=== PATIENT | male | born 1965 | race Caucasian/White ===

== ENCOUNTER 2022-03-08 09:20 | Inpatient (IN) | payer MEDICAID ==
[~2022-03-08] VITALS: Ht 162.6 cm; Wt 67.3 kg
[2022-03-08] MEDS ORDERED: FUROSEMIDE 40MG TABLET PO ONE (13:00)
[2022-03-08 13:26] LABS: HEMATOCRIT. 44.8 % (42.0-52.0); HEMOGLOBIN. 13.8 g/dL (14.0-18.0); MEAN CORPUSCULAR HEMOGLOBIN 24.4 pg (28.0-32.0); MEAN CORPUSCULAR VOLUME 79.1 fL (80.0-94.0); MEAN PLATELET VOLUME 9.1 fl (7.4-10.4); PLATELET 280 x1000/uL (130-400); RED BLOOD CELL COUNT 5.66 mill/uL (4.7-6.1); RED CELL DISTRIBUTION WIDTH 17.3 % (11.6-14.6)
[2022-03-08 13:35] LABS: CHLORIDE 104 mEq/L (98-107)
[2022-03-08 13:51] LABS: PLATELET ESTIMATE NORMAL
[2022-03-08] MEDS ORDERED: CEFTRIAXONE 1 G PREMIX 50 ML IV NR (14:15)
[2022-03-08] MEDS ORDERED: AZITHROMYCIN 500MG/250ML 250 ML IV NR (14:15)
[2022-03-08 19:13] VITALS: BP 121/68
[2022-03-08 20:00] VITALS: BP 118/75
[2022-03-08] MEDS: IPRATROPIUM/ALBUTEROL 0.5-3(2.5)MG/3ML NEB HHN SCH (21:43)
[2022-03-08 22:44] VITALS: BP 118/75
[2022-03-09 00:14] VITALS: BP 122/76
[2022-03-09] MEDS: IPRATROPIUM/ALBUTEROL 0.5-3(2.5)MG/3ML NEB HHN SCH ×4 (02:35→21:04)
[2022-03-09 04:00] VITALS: BP 102/60
[2022-03-09 06:27] LABS: HEMATOCRIT. 39.6 % (42.0-52.0); HEMOGLOBIN. 12.3 g/dL (14.0-18.0); MEAN CORPUSCULAR HEMOGLOBIN 24.3 pg (28.0-32.0); MEAN CORPUSCULAR VOLUME 78.2 fL (80.0-94.0); MEAN PLATELET VOLUME 9.9 fl (7.4-10.4); PLATELET 203 x1000/uL (130-400); RED BLOOD CELL COUNT 5.06 mill/uL (4.7-6.1); RED CELL DISTRIBUTION WIDTH 17.4 % (11.6-14.6)
[2022-03-09 08:00] VITALS: BP 114/65
[2022-03-09] MEDS: AZITHROMYCIN 500 MG TABLET PO SCH (08:29)
[2022-03-09] MEDS ORDERED: FUROSEMIDE 40MG/4ML VIAL IVP SCH (09:00)
[2022-03-09] MEDS ORDERED: GUAIFENESIN-DM 200MG-20MG/10ML UDC PO PRN (10:15)
[2022-03-09] MEDS ORDERED: DOCUSATE SODIUM 250MG CAPSULE PO PRN (10:15)
[2022-03-09] MEDS ORDERED: PNEUMOCOCCAL 23-VAL P-SAC VAC 0.5 ML IM ONE (11:00)
[2022-03-09] MEDS ORDERED: INFLUENZA VACCINE 05/PF 0.5 ML SYRINGE IM ONE (11:00)
[2022-03-09] MEDS ORDERED: IPRATROPIUM/ALBUTEROL 0.5-3(2.5)MG/3ML NEB HHN PRN (11:45)
[2022-03-09 12:00] VITALS: BP 115/70
[2022-03-09] MEDS ORDERED: VANCOMYCIN 1500MG in DEXTROSE 5% WATER 250ML IV NR (12:00)
[2022-03-09] MEDS: CEFTRIAXONE 1,000 MG in DEXTROSE 5% WATER 50 ML IV SCH (14:11)
[2022-03-09 16:00] VITALS: BP 115/68
[2022-03-09] MEDS: ONDANSETRON HCL 4MG/2ML INJ IV PRN (17:07)
[2022-03-09 18:33] LABS: PLATELET ESTIMATE NORMAL
[2022-03-09 20:00] VITALS: BP 121/66
[2022-03-09 23:15] LABS: CLARITY URINE CLEAR (CLEAR); COLOR URINE YELLOW (YELLOW); KETONES URINE NEGATIVE (NEGATIVE); LEUKOCYTE ESTERASE URINE NEGATIVE (NEGATIVE); NITRITE URINE NEGATIVE (NEGATIVE); OCCULT BLOOD URINE NEGATIVE (NEGATIVE); PROTEIN URINE TRACE (NEGATIVE); SPECIFIC GRAVITY URINE 1.013 (1.005-1.030)
[2022-03-09 23:28] LABS: *AMPHETAMINES SCREEN URINE NEGATIVE (NEGATIVE); *BARBITURATES SCREEN URINE NEGATIVE (NEGATIVE); *BENZODIAZEPINES SCREEN URINE NEGATIVE (NEGATIVE); *COCAINE SCREEN URINE PRESUMTIVE POSITIVE (NEGATIVE); CANNABINOID URINE SCREEN NEGATIVE (NEGATIVE); METHADONE URINE SCREEN NEGATIVE (NEGATIVE); OPIATES URINE SCREEN NEGATIVE (NEGATIVE); PHENCYCLIDINE URINE SCREEN NEGATIVE (NEGATIVE)
[2022-03-10] VITALS: BP 115/65
[2022-03-10] MEDS: IPRATROPIUM/ALBUTEROL 0.5-3(2.5)MG/3ML NEB HHN SCH ×4 (01:13→21:28)
[2022-03-10 04:00] VITALS: BP 122/68
[2022-03-10 08:00] VITALS: BP 115/78
[2022-03-10] MEDS: AZITHROMYCIN 500 MG TABLET PO SCH (08:49)
[2022-03-10 12:00] VITALS: BP 125/77
[2022-03-10] MEDS ORDERED: VANCOMYCIN 750MG PREMIX 150 ML IV SCH (12:00)
[2022-03-10] MEDS: CEFTRIAXONE 1,000 MG in DEXTROSE 5% WATER 50 ML IV SCH (14:41)
[2022-03-10 16:00] VITALS: BP 125/80
[2022-03-10 16:55] LABS: HEMATOCRIT. 35.5 % (42.0-52.0); MEAN CORPUSCULAR HEMOGLOBIN 24.1 pg (28.0-32.0); PLATELET 97 x1000/uL (130-400); RED BLOOD CELL COUNT 4.55 mill/uL (4.7-6.1)
[2022-03-10 19:51] LABS: PLATELET ESTIMATE DECREASED
[2022-03-10 20:00] VITALS: BP 117/77
[2022-03-10] MEDS: HYDROCODONE/ACETAMINOPHEN 10/325MG TABLET PO PRN (21:53)
[2022-03-10] MEDS: ONDANSETRON HCL 4MG/2ML INJ IV PRN (21:53)
[2022-03-11] VITALS: BP 145/95
[2022-03-11] MEDS: IPRATROPIUM/ALBUTEROL 0.5-3(2.5)MG/3ML NEB HHN SCH ×4 (01:13→19:43)
[2022-03-11] MEDS: HYDROCODONE/ACETAMINOPHEN 10/325MG TABLET PO PRN (03:24)
[2022-03-11 04:00] VITALS: BP 135/83
[2022-03-11 06:25] LABS: HEMATOCRIT. 36.7 % (42.0-52.0); HEMOGLOBIN. 11.3 g/dL (14.0-18.0); MEAN CORPUSCULAR VOLUME 77.6 fL (80.0-94.0); MEAN PLATELET VOLUME 11.2 fl (7.4-10.4); PLATELET 94 x1000/uL (130-400); RED BLOOD CELL COUNT 4.73 mill/uL (4.7-6.1)
[2022-03-11] MEDS: ONDANSETRON HCL 4MG/2ML INJ IV PRN (06:56)
[2022-03-11 08:00] VITALS: BP 144/85
[2022-03-11 08:33] LABS: PLATELET ESTIMATE DECREASED
[2022-03-11] MEDS: AZITHROMYCIN 500 MG TABLET PO SCH (10:14)
[2022-03-11] MEDS ORDERED: MORPHINE SULFATE 2 MG/ML CPJ (NOT FOR IM USE) IV NR (11:00)
[2022-03-11] MEDS ORDERED: NALOXONE HCL 0.4MG/ML VIAL IV PRN (11:00)
[2022-03-11 12:00] VITALS: BP 116/63
[2022-03-11] MEDS: DEXT 5%/0.45% NACL 500ML 500 ML IV SCH ×2 (12:38→21:44)
[2022-03-11 16:00] VITALS: BP 102/53
[2022-03-11] MEDS: PANTOPRAZOLE SODIUM 40 MG/VIAL IV SCH ×2 (16:20→21:41)
[2022-03-11] MEDS: CEFTRIAXONE 1,000 MG in DEXTROSE 5% WATER 50 ML IV SCH (16:20)
[2022-03-11 19:45] LABS: HEMATOCRIT 36.5 % (42.0-52.0); HEMOGLOBIN 11.1 g/dL (14.0-18.0)
[2022-03-11 20:00] VITALS: BP 108/62
[2022-03-11 20:07] LABS: TOTAL IRON BINDING CAPACITY 350 ug/dL (250-450)
[2022-03-11 20:25] LABS: FOLIC ACID (FOLATE) SERUM 6.8 ng/mL (>5.38)
[2022-03-12] VITALS: BP 148/88
[2022-03-12 01:05] LABS: HEMATOCRIT 34.1 % (42.0-52.0); HEMOGLOBIN 10.2 g/dL (14.0-18.0)
[2022-03-12] MEDS: IPRATROPIUM/ALBUTEROL 0.5-3(2.5)MG/3ML NEB HHN SCH ×4 (02:00→20:30)
[2022-03-12 03:37] VITALS: BP 96/50
[2022-03-12 05:29] LABS: BG CARBOXYHEMOGLOBIN 1.3 % (0.5-1.5); BG DEOXYHEMOGLOBIN 15.7 % (0.0-5.0); BG FRACTION INSPIRED OXYGEN 48; BG HCO3 ACT 22.3 mmol/L (22.0-26.0); BG METHEMOGLOBIN 0.3 % (0.0-1.5); BG OXYHEMOGLOBIN 82.7 % (94.0-97.0); BG PCO2 40.7 mmHg (35.0-45.0); BG PH 7.356 (7.350-7.450); BG PO2 51.9 mmHg (75.0-100.0); BG SAMPLE SITE RIGHT RADIAL; BG TOTAL HEMOGLOBIN 10.4 g/dL (12.0-18.0); BG VENT MODE NASAL CANNULA
[2022-03-12 06:18] LABS: HEMOGLOBIN. 10.1 g/dL (14.0-18.0); MEAN CORPUSCULAR HEMOGLOBIN 24.1 pg (28.0-32.0); MEAN CORPUSCULAR VOLUME 78.6 fL (80.0-94.0); MEAN PLATELET VOLUME 10.8 fl (7.4-10.4); PLATELET 53 x1000/uL (130-400); RED CELL DISTRIBUTION WIDTH 17.2 % (11.6-14.6)
[2022-03-12 06:38] LABS: INR 1.1; PROTHROMBIN TIME 11.9 sec (9.6-11.0)
[2022-03-12] MEDS ORDERED: FUROSEMIDE 40MG/4ML VIAL IVP SCH (07:15)
[2022-03-12 08:00] VITALS: BP 117/72
[2022-03-12] MEDS: DEXT 5%/0.45% NACL 500ML 500 ML IV SCH ×2 (08:30→18:19)
[2022-03-12] MEDS: AZITHROMYCIN 500 MG TABLET PO SCH (09:50)
[2022-03-12] MEDS: PANTOPRAZOLE SODIUM 40 MG/VIAL IV SCH ×2 (09:50→21:32)
[2022-03-12 11:54] LABS: PLATELET ESTIMATE MARKEDLY DECREASED
[2022-03-12 12:00] VITALS: BP 99/53
[2022-03-12 12:36] LABS: HEMATOCRIT 32.7 % (42.0-52.0); HEMOGLOBIN 9.7 g/dL (14.0-18.0)
[2022-03-12 14:20] LABS: BG BASE EXCESS -3.6 mmol/L (-2.0-2.0); BG CARBOXYHEMOGLOBIN 0.9 % (0.5-1.5); BG FRACTION INSPIRED OXYGEN 100; BG HCO3 ACT 22.2 mmol/L (22.0-26.0); BG METHEMOGLOBIN 0.3 % (0.0-1.5); BG OXYHEMOGLOBIN 97.8 % (94.0-97.0); BG PCO2 43.2 mmHg (35.0-45.0); BG PH 7.329 (7.350-7.450); BG PO2 183.9 mmHg (75.0-100.0); BG SAMPLE SITE LEFT RADIAL; BG TOTAL HEMOGLOBIN 10.4 g/dL (12.0-18.0); BG VENT MODE MASK - NRB
[2022-03-12 16:00] VITALS: BP 111/59
[2022-03-12] MEDS: CEFTRIAXONE 1,000 MG in DEXTROSE 5% WATER 50 ML IV SCH (17:21)
[2022-03-12] MEDS: ASCORBIC ACID 500 MG TABLET PO SCH (18:19)
[2022-03-12] MEDS: FERROUS SULFATE 325MG TABLET PO SCH (18:19)
[2022-03-12 20:00] VITALS: BP 130/80
[2022-03-12] MEDS: GUAIFENESIN 600MG ER TABLET PO SCH (21:33)
[2022-03-13] VITALS (29 sets, daily range): BP systolic 91–138; BP diastolic 31–72
[2022-03-13] MEDS: IPRATROPIUM/ALBUTEROL 0.5-3(2.5)MG/3ML NEB HHN SCH ×3 (01:42→14:43)
[2022-03-13] MEDS: DEXT 5%/0.45% NACL 500ML 500 ML IV SCH ×3 (04:30→20:09)
[2022-03-13 07:34] LABS: HEMATOCRIT. 27.2 % (42.0-52.0); HEMOGLOBIN. 8.4 g/dL (14.0-18.0); MEAN CORPUSCULAR HEMOGLOBIN 25.2 pg (28.0-32.0); MEAN CORPUSCULAR VOLUME 81.7 fL (80.0-94.0); MEAN PLATELET VOLUME 10.4 fl (7.4-10.4); RED BLOOD CELL COUNT 3.34 mill/uL (4.7-6.1); RED CELL DISTRIBUTION WIDTH 17.3 % (11.6-14.6)
[2022-03-13] MEDS: ASCORBIC ACID 500 MG TABLET PO SCH (07:40)
[2022-03-13] MEDS: FERROUS SULFATE 325MG TABLET PO SCH ×2 (07:40→17:40)
[2022-03-13 07:56] LABS: PLATELET 43 x1000/uL (130-400)
[2022-03-13] MEDS: PANTOPRAZOLE SODIUM 40 MG/VIAL IV SCH ×2 (08:40→20:29)
[2022-03-13] MEDS: GUAIFENESIN 600MG ER TABLET PO SCH ×2 (08:43→20:29)
[2022-03-13] MEDS: AZITHROMYCIN 500 MG TABLET PO SCH (08:43)
[2022-03-13] MEDS ORDERED: FUROSEMIDE 40MG/4ML VIAL IVP SCH (09:00)
[2022-03-13 09:06] LABS: BG BASE EXCESS -3.6 mmol/L (-2.0-2.0); BG CARBOXYHEMOGLOBIN 0.7 % (0.5-1.5); BG DEOXYHEMOGLOBIN 0.5 % (0.0-5.0); BG HCO3 ACT 23.1 mmol/L (22.0-26.0); BG METHEMOGLOBIN 0.3 % (0.0-1.5); BG OXYGEN SATURATION 99.5 % (92.0-98.5); BG OXYHEMOGLOBIN 98.5 % (94.0-97.0); BG PCO2 50.3 mmHg (35.0-45.0); BG PO2 262.1 mmHg (75.0-100.0); BG SAMPLE SITE RIGHT BRACHIAL; BG TOTAL HEMOGLOBIN 9.1 g/dL (12.0-18.0); BG VENT MODE MASK - NRB
[2022-03-13] MEDS ORDERED: SODIUM POLYSTYRENE SULFONATE 15 G/60 ML BOT NG NR (13:00)
[2022-03-13 13:02] LABS: PLATELET ESTIMATE MARKEDLY DECREASED
[2022-03-13] MEDS ORDERED: SODIUM POLYSTYRENE SULFONATE 15 G/60 ML BOT PO NR ×2 (13:15→19:00)
[2022-03-13] MEDS ORDERED: ALBUMIN HUMAN 25GM/100ML (25%) IV NR (14:30)
[2022-03-13] MEDS: LACTULOSE 20G/30ML UDC NG SCH ×2 (16:00→21:03)
[2022-03-13] MEDS: ASCORBIC ACID 500 MG TABLET NG SCH (17:00)
[2022-03-13] MEDS: CEFTRIAXONE 1,000 MG in DEXTROSE 5% WATER 50 ML IV SCH (17:07)
[2022-03-14] VITALS (104 sets, daily range): BP systolic 64–149; BP diastolic 24–84
[2022-03-14] MEDS: DEXT 5%/0.45% NACL 500ML 500 ML IV SCH (02:37)
[2022-03-14 05:27] LABS: HEMATOCRIT. 27.7 % (42.0-52.0); HEMOGLOBIN. 8.4 g/dL (14.0-18.0); MEAN CORPUSCULAR HEMOGLOBIN 25.6 pg (28.0-32.0); MEAN CORPUSCULAR VOLUME 84.4 fL (80.0-94.0); MEAN PLATELET VOLUME 10.7 fl (7.4-10.4); RED BLOOD CELL COUNT 3.28 mill/uL (4.7-6.1); RED CELL DISTRIBUTION WIDTH 17.4 % (11.6-14.6)
[2022-03-14 05:28] LABS: CHLORIDE 107 mEq/L (98-107)
[2022-03-14 05:50] LABS: PHOSPHORUS 8.9 mg/dL (2.5-4.9)
[2022-03-14 05:51] LABS: PLATELET 48 x1000/uL (130-400)
[2022-03-14] MEDS: FERROUS SULFATE 325MG TABLET PO SCH ×2 (06:17→17:45)
[2022-03-14] MEDS: LACTULOSE 20G/30ML UDC NG SCH (06:17)
[2022-03-14] MEDS ORDERED: SODIUM BICARBONATE 8.4% 1 MEQ/ML 50ML SYR IV NR (07:00)
[2022-03-14] MEDS ORDERED: SODIUM POLYSTYRENE SULFONATE 15 G/60 ML BOT PO NR (07:00)
[2022-03-14] MEDS ORDERED: DEXTROSE 50% WATER 50ML SYRINGE IV NR (07:00)
[2022-03-14] MEDS ORDERED: INSULIN REGULAR (HUMULIN R) 300UNITS/3ML VIAL IV NR (07:00)
[2022-03-14 09:07] LABS: BG BASE EXCESS -5.2 mmol/L (-2.0-2.0); BG CARBOXYHEMOGLOBIN 0.8 % (0.5-1.5); BG DEOXYHEMOGLOBIN 2.1 % (0.0-5.0); BG FRACTION INSPIRED OXYGEN 60; BG HCO3 ACT 21.5 mmol/L (22.0-26.0); BG METHEMOGLOBIN 0.2 % (0.0-1.5); BG OXYGEN SATURATION 97.9 % (92.0-98.5); BG OXYHEMOGLOBIN 96.9 % (94.0-97.0); BG PCO2 47.9 mmHg (35.0-45.0); BG PH 7.269 (7.350-7.450); BG PO2 116.5 mmHg (75.0-100.0); BG SAMPLE SITE LEFT RADIAL; BG TOTAL HEMOGLOBIN 8.5 g/dL (12.0-18.0); BG VENT MODE MASK - PARTIAL NRB
[2022-03-14] MEDS: ASCORBIC ACID 500 MG TABLET NG SCH ×2 (09:12→17:45)
[2022-03-14] MEDS: AZITHROMYCIN 500 MG TABLET PO SCH (09:12)
[2022-03-14] MEDS: GUAIFENESIN 600MG ER TABLET PO SCH ×2 (09:12→20:26)
[2022-03-14] MEDS: PANTOPRAZOLE SODIUM 40 MG/VIAL IV SCH ×2 (09:12→20:26)
[2022-03-14] MEDS: IPRATROPIUM/ALBUTEROL 0.5-3(2.5)MG/3ML NEB HHN SCH ×3 (09:14→20:13)
[2022-03-14] MEDS: DEXT 5%/0.45% NACL 1000ML 1,000 ML IV SCH (09:30)
[2022-03-14 10:09] LABS: PLATELET ESTIMATE MARKEDLY DECREASED
[2022-03-14] MEDS: NOREPINEPHRINE 32 MG in DEXT 5% WATER 218 ML IV PRN (11:30)
[2022-03-14] MEDS ORDERED: LIDOCAINE HCL/PF 1% 10 MG/ML 5ML VIAL ONE (11:41)
[2022-03-14] MEDS ORDERED: HEPARIN 1000 UNITS/ML 10ML ONE (12:00)
[2022-03-14] MEDS ORDERED: MIDAZOLAM 100MG/100ML PMX 100 ML IV PRN (12:15)
[2022-03-14] MEDS ORDERED: FENTANYL 2500MCG/250ML PMX 250 ML IV PRN (12:30)
[2022-03-14] MEDS ORDERED: LIDOCAINE HCL 1% 30ML VIAL (10MG/ML) ONE (12:32)
[2022-03-14 13:30] LABS: BG BASE EXCESS -7.4 mmol/L (-2.0-2.0); BG CARBOXYHEMOGLOBIN 0.3 % (0.5-1.5); BG DEOXYHEMOGLOBIN 1.9 % (0.0-5.0); BG FRACTION INSPIRED OXYGEN 100; BG HCO3 ACT 20.8 mmol/L (22.0-26.0); BG METHEMOGLOBIN 0.3 % (0.0-1.5); BG OXYGEN SATURATION 98.1 % (92.0-98.5); BG OXYHEMOGLOBIN 97.5 % (94.0-97.0); BG PCO2 56.3 mmHg (35.0-45.0); BG PH 7.186 (7.350-7.450); BG PO2 135.9 mmHg (75.0-100.0); BG SAMPLE SITE LEFT RADIAL; BG TOTAL HEMOGLOBIN 9.7 g/dL (12.0-18.0); BG VENT MODE VENT - AC
[2022-03-14] MEDS: CEFTRIAXONE 1,000 MG in DEXTROSE 5% WATER 50 ML IV SCH (15:00)
[2022-03-14] MEDS: MIDAZOLAM HCL 100 MG in SODIUM CHLORIDE 0.9% 100 ML IV PRN (15:01)
[2022-03-14 18:32] LABS: BG CARBOXYHEMOGLOBIN 1.1 % (0.5-1.5); BG DEOXYHEMOGLOBIN 0.1 % (0.0-5.0); BG FRACTION INSPIRED OXYGEN 100; BG HCO3 ACT 22.9 mmol/L (22.0-26.0); BG METHEMOGLOBIN 0.3 % (0.0-1.5); BG OXYGEN SATURATION 99.9 % (92.0-98.5); BG OXYHEMOGLOBIN 98.5 % (94.0-97.0); BG PCO2 39.6 mmHg (35.0-45.0); BG PO2 231.5 mmHg (75.0-100.0); BG SAMPLE SITE RIGHT RADIAL; BG TOTAL HEMOGLOBIN 9.7 g/dL (12.0-18.0); BG VENT MODE VENT - AC
[2022-03-14 22:17] LABS: HEPATITIS B SURFACE ANTIGEN NEGATIVE
[2022-03-15] VITALS (99 sets, daily range): BP systolic 72–129; BP diastolic 47–76
[2022-03-15] MEDS: MEROPENEM 1,000 MG in SODIUM CHLORIDE 0.9% 100 ML IV SCH ×2 (01:03→07:00)
[2022-03-15] MEDS: IPRATROPIUM/ALBUTEROL 0.5-3(2.5)MG/3ML NEB HHN SCH ×4 (02:10→20:18)
[2022-03-15 05:52] LABS: HEMATOCRIT. 29.3 % (42.0-52.0); MEAN CORPUSCULAR HEMOGLOBIN 24.1 pg (28.0-32.0); MEAN CORPUSCULAR VOLUME 78.7 fL (80.0-94.0); MEAN PLATELET VOLUME 11.5 fl (7.4-10.4); PLATELET 60 x1000/uL (130-400); RED BLOOD CELL COUNT 3.72 mill/uL (4.7-6.1); RED CELL DISTRIBUTION WIDTH 17.3 % (11.6-14.6)
[2022-03-15] MEDS: FERROUS SULFATE 325MG TABLET PO SCH ×2 (06:02→17:25)
[2022-03-15] MEDS: NOREPINEPHRINE 32 MG in DEXT 5% WATER 218 ML IV PRN (06:55)
[2022-03-15] MEDS: PANTOPRAZOLE SODIUM 40 MG/VIAL IV SCH ×2 (08:02→20:51)
[2022-03-15] MEDS: GUAIFENESIN 600MG ER TABLET PO SCH ×2 (08:03→20:51)
[2022-03-15] MEDS: LACTULOSE 20G/30ML UDC NG SCH (08:03)
[2022-03-15] MEDS: ASCORBIC ACID 500 MG TABLET NG SCH ×2 (08:03→17:25)
[2022-03-15 10:48] LABS: BG BASE EXCESS 0.2 mmol/L (-2.0-2.0); BG CARBOXYHEMOGLOBIN 0.5 % (0.5-1.5); BG DEOXYHEMOGLOBIN 3.7 % (0.0-5.0); BG HCO3 ACT 23.7 mmol/L (22.0-26.0); BG METHEMOGLOBIN 0.3 % (0.0-1.5); BG OXYGEN SATURATION 96.3 % (92.0-98.5); BG OXYHEMOGLOBIN 95.5 % (94.0-97.0); BG PCO2 34.4 mmHg (35.0-45.0); BG PH 7.456 (7.350-7.450); BG PO2 85.7 mmHg (75.0-100.0); BG SAMPLE SITE RIGHT RADIAL; BG TOTAL HEMOGLOBIN 10.9 g/dL (12.0-18.0); BG VENT MODE VENT - AC
[2022-03-15 11:38] LABS: PLATELET ESTIMATE DECREASED
[2022-03-15] MEDS: DEXT 5%/0.45% NACL 1000ML 1,000 ML IV SCH (17:27)
[2022-03-16] VITALS (96 sets, daily range): BP systolic 69–141; BP diastolic 46–98
[2022-03-16] MEDS: IPRATROPIUM/ALBUTEROL 0.5-3(2.5)MG/3ML NEB HHN SCH ×4 (03:21→20:59)
[2022-03-16 04:09] LABS: HEMATOCRIT. 26.4 % (42.0-52.0); HEMOGLOBIN. 8.4 g/dL (14.0-18.0); MEAN CORPUSCULAR HEMOGLOBIN 24.4 pg (28.0-32.0); MEAN CORPUSCULAR VOLUME 77.2 fL (80.0-94.0); MEAN PLATELET VOLUME 11.4 fl (7.4-10.4); PLATELET 68 x1000/uL (130-400); RED BLOOD CELL COUNT 3.42 mill/uL (4.7-6.1); RED CELL DISTRIBUTION WIDTH 16.9 % (11.6-14.6)
[2022-03-16 04:52] LABS: PHOSPHORUS 3.8 mg/dL (2.5-4.9)
[2022-03-16] MEDS: MEROPENEM 500MG in NORMAL SALINE 50ML IV SCH (05:11)
[2022-03-16] MEDS: FERROUS SULFATE 325MG TABLET PO SCH ×2 (06:13→17:58)
[2022-03-16 08:29] LABS: BG CARBOXYHEMOGLOBIN 0.8 % (0.5-1.5); BG DEOXYHEMOGLOBIN 2.9 % (0.0-5.0); BG HCO3 ACT 28.4 mmol/L (22.0-26.0); BG METHEMOGLOBIN 0.3 % (0.0-1.5); BG OXYGEN SATURATION 97.1 % (92.0-98.5); BG PH 7.503 (7.350-7.450); BG PO2 94.5 mmHg (75.0-100.0); BG SAMPLE SITE RIGHT RADIAL; BG TOTAL HEMOGLOBIN 8.9 g/dL (12.0-18.0); BG VENT MODE VENT - AC
[2022-03-16] MEDS: LACTULOSE 20G/30ML UDC NG SCH (08:52)
[2022-03-16] MEDS: PANTOPRAZOLE SODIUM 40 MG/VIAL IV SCH ×2 (08:52→20:46)
[2022-03-16] MEDS: GUAIFENESIN 600MG ER TABLET PO SCH ×2 (08:52→20:46)
[2022-03-16] MEDS: ASCORBIC ACID 500 MG TABLET NG SCH ×2 (08:52→17:58)
[2022-03-16 10:40] LABS: PLATELET ESTIMATE DECREASED
[2022-03-16 12:21] LABS: BG BASE EXCESS 7.1 mmol/L (-2.0-2.0); BG CARBOXYHEMOGLOBIN 0.7 % (0.5-1.5); BG DEOXYHEMOGLOBIN 3.8 % (0.0-5.0); BG FRACTION INSPIRED OXYGEN 40; BG HCO3 ACT 30.6 mmol/L (22.0-26.0); BG OXYGEN SATURATION 96.2 % (92.0-98.5); BG OXYHEMOGLOBIN 95.5 % (94.0-97.0); BG PH 7.512 (7.350-7.450); BG PO2 83.6 mmHg (75.0-100.0); BG SAMPLE SITE LEFT RADIAL; BG TOTAL HEMOGLOBIN 9.1 g/dL (12.0-18.0); BG VENT MODE VENT - AC
[2022-03-16] MEDS: NOREPINEPHRINE 32 MG in DEXT 5% WATER 218 ML IV PRN (15:20)
[2022-03-16] MEDS: DEXT 5%/0.45% NACL 1000ML 1,000 ML IV SCH (15:21)
[2022-03-16] MEDS: MIDAZOLAM HCL 100 MG in SODIUM CHLORIDE 0.9% 100 ML IV PRN (15:21)
[2022-03-17] VITALS (103 sets, daily range): BP systolic 78–130; BP diastolic 49–89
[2022-03-17] MEDS: PHENYLEPHRINE 100 MG in DEXT 5% WATER 240 ML IV PRN ×2 (01:14→14:29)
[2022-03-17] MEDS: IPRATROPIUM/ALBUTEROL 0.5-3(2.5)MG/3ML NEB HHN SCH ×4 (02:10→20:51)
[2022-03-17 05:38] LABS: HEMATOCRIT. 26.8 % (42.0-52.0); HEMOGLOBIN. 8.4 g/dL (14.0-18.0); MEAN CORPUSCULAR HEMOGLOBIN 24.5 pg (28.0-32.0); MEAN CORPUSCULAR VOLUME 78.2 fL (80.0-94.0); MEAN PLATELET VOLUME 11.2 fl (7.4-10.4); PLATELET 80 x1000/uL (130-400); RED BLOOD CELL COUNT 3.42 mill/uL (4.7-6.1); RED CELL DISTRIBUTION WIDTH 16.9 % (11.6-14.6)
[2022-03-17] MEDS: MEROPENEM 500MG in NORMAL SALINE 50ML IV SCH (05:57)
[2022-03-17] MEDS: FERROUS SULFATE 325MG TABLET PO SCH ×2 (06:47→16:31)
[2022-03-17] MEDS: ASCORBIC ACID 500 MG TABLET NG SCH ×2 (08:48→16:31)
[2022-03-17] MEDS: PANTOPRAZOLE SODIUM 40 MG/VIAL IV SCH ×2 (08:48→20:06)
[2022-03-17] MEDS: LACTULOSE 20G/30ML UDC NG SCH (08:48)
[2022-03-17] MEDS: GUAIFENESIN 600MG ER TABLET PO SCH ×2 (08:48→20:06)
[2022-03-17] MEDS: DEXT 5%/0.45% NACL 1000ML 1,000 ML IV SCH (08:49)
[2022-03-17 09:12] LABS: BG BASE EXCESS 5.5 mmol/L (-2.0-2.0); BG CARBOXYHEMOGLOBIN 1.5 % (0.5-1.5); BG DEOXYHEMOGLOBIN 2.7 % (0.0-5.0); BG FRACTION INSPIRED OXYGEN 40; BG HCO3 ACT 28.9 mmol/L (22.0-26.0); BG METHEMOGLOBIN 0.3 % (0.0-1.5); BG OXYGEN SATURATION 97.3 % (92.0-98.5); BG OXYHEMOGLOBIN 95.5 % (94.0-97.0); BG PCO2 37.3 mmHg (35.0-45.0); BG PH 7.507 (7.350-7.450); BG PO2 91.4 mmHg (75.0-100.0); BG SAMPLE SITE RIGHT RADIAL; BG TOTAL HEMOGLOBIN 8.5 g/dL (12.0-18.0); BG VENT MODE VENT - AC
[2022-03-17] MEDS ORDERED: KCL 20MEQ/100ML PREMIX 100 ML IV NR (11:00)
[2022-03-17] MEDS: ACETAMINOPHEN 650MG/20.3ML UDC NG PRN (11:17)
[2022-03-17 15:30] LABS: PLATELET ESTIMATE DECREASED
[2022-03-18] VITALS (91 sets, daily range): BP systolic 72–155; BP diastolic 45–89
[2022-03-18] MEDS: IPRATROPIUM/ALBUTEROL 0.5-3(2.5)MG/3ML NEB HHN SCH ×3 (00:43→20:43)
[2022-03-18] MEDS: PHENYLEPHRINE 100 MG in DEXT 5% WATER 240 ML IV PRN (04:18)
[2022-03-18 05:53] LABS: HEMATOCRIT. 27.6 % (42.0-52.0); HEMOGLOBIN. 8.6 g/dL (14.0-18.0); MEAN CORPUSCULAR HEMOGLOBIN 24.3 pg (28.0-32.0); MEAN CORPUSCULAR VOLUME 77.9 fL (80.0-94.0); MEAN PLATELET VOLUME 11.8 fl (7.4-10.4); PLATELET 103 x1000/uL (130-400); RED BLOOD CELL COUNT 3.54 mill/uL (4.7-6.1); RED CELL DISTRIBUTION WIDTH 16.7 % (11.6-14.6)
[2022-03-18] MEDS: FERROUS SULFATE 325MG TABLET PO SCH ×2 (06:01→16:46)
[2022-03-18] MEDS: MEROPENEM 500MG in NORMAL SALINE 50ML IV SCH (06:01)
[2022-03-18 06:22] LABS: PHOSPHORUS 4.7 mg/dL (2.5-4.9)
[2022-03-18] MEDS: PANTOPRAZOLE SODIUM 40 MG/VIAL IV SCH ×2 (08:40→21:14)
[2022-03-18] MEDS: GUAIFENESIN 600MG ER TABLET PO SCH ×2 (08:41→21:00)
[2022-03-18] MEDS: LACTULOSE 20G/30ML UDC NG SCH (08:41)
[2022-03-18] MEDS: ASCORBIC ACID 500 MG TABLET NG SCH ×2 (08:41→16:46)
[2022-03-18 09:07] LABS: BG BASE EXCESS 7.5 mmol/L (-2.0-2.0); BG CARBOXYHEMOGLOBIN 1.2 % (0.5-1.5); BG DEOXYHEMOGLOBIN 2.2 % (0.0-5.0); BG FRACTION INSPIRED OXYGEN 40; BG HCO3 ACT 30.3 mmol/L (22.0-26.0); BG OXYGEN SATURATION 97.8 % (92.0-98.5); BG OXYHEMOGLOBIN 96.6 % (94.0-97.0); BG PCO2 35.4 mmHg (35.0-45.0); BG PH 7.551 (7.350-7.450); BG PO2 103.1 mmHg (75.0-100.0); BG SAMPLE SITE RIGHT RADIAL; BG TOTAL HEMOGLOBIN 8.5 g/dL (12.0-18.0); BG VENT MODE VENT - AC
[2022-03-18] MEDS: KCL 20MEQ/100ML PREMIX 100 ML IV SCH ×2 (10:37→12:05)
[2022-03-18 11:23] LABS: BG BASE EXCESS 5.3 mmol/L (-2.0-2.0); BG CARBOXYHEMOGLOBIN 0.8 % (0.5-1.5); BG DEOXYHEMOGLOBIN 1.8 % (0.0-5.0); BG FRACTION INSPIRED OXYGEN 40; BG HCO3 ACT 28.5 mmol/L (22.0-26.0); BG METHEMOGLOBIN 0.3 % (0.0-1.5); BG OXYGEN SATURATION 98.2 % (92.0-98.5); BG OXYHEMOGLOBIN 97.1 % (94.0-97.0); BG PH 7.517 (7.350-7.450); BG PO2 114.3 mmHg (75.0-100.0); BG SAMPLE SITE RIGHT RADIAL; BG TOTAL HEMOGLOBIN 8.3 g/dL (12.0-18.0); BG VENT MODE VENT - CPAP
[2022-03-18] MEDS: POTASSIUM CHLORIDE INJ 30 MEQ in DEXT 5%/0.2% NACL 1,000 ML IV SCH (12:05)
[2022-03-18] MEDS: MIDODRINE HCL 5MG TABLET PO SCH ×2 (12:15→16:46)
[2022-03-18 12:53] LABS: PLATELET ESTIMATE DECREASED
[2022-03-18] MEDS: ACETAMINOPHEN 650MG/20.3ML UDC NG PRN (17:40)
[2022-03-18] MEDS: LEVOFLOXACIN 500MG TABLET PO SCH (17:40)
[2022-03-19] VITALS (29 sets, daily range): BP systolic 88–122; BP diastolic 44–71
[2022-03-19] MEDS: IPRATROPIUM/ALBUTEROL 0.5-3(2.5)MG/3ML NEB HHN SCH ×4 (01:49→20:35)
[2022-03-19] MEDS: POTASSIUM CHLORIDE INJ 30 MEQ in DEXT 5%/0.2% NACL 1,000 ML IV SCH (02:42)
[2022-03-19 05:40] LABS: HEMATOCRIT. 24.5 % (42.0-52.0); HEMOGLOBIN. 7.3 g/dL (14.0-18.0); MEAN CORPUSCULAR HEMOGLOBIN 23.9 pg (28.0-32.0); MEAN CORPUSCULAR VOLUME 79.8 fL (80.0-94.0); MEAN PLATELET VOLUME 11.5 fl (7.4-10.4); PLATELET 102 x1000/uL (130-400); RED BLOOD CELL COUNT 3.07 mill/uL (4.7-6.1); RED CELL DISTRIBUTION WIDTH 16.9 % (11.6-14.6)
[2022-03-19] MEDS: FERROUS SULFATE 325MG TABLET PO SCH ×2 (07:00→17:14)
[2022-03-19 07:47] LABS: PLATELET ESTIMATE DECREASED
[2022-03-19] MEDS: ASCORBIC ACID 500 MG TABLET NG SCH (09:22)
[2022-03-19] MEDS: PANTOPRAZOLE SODIUM 40 MG/VIAL IV SCH ×2 (09:22→22:18)
[2022-03-19] MEDS: GUAIFENESIN 600MG ER TABLET PO SCH ×2 (09:22→22:18)
[2022-03-19] MEDS: MIDODRINE HCL 5MG TABLET PO SCH ×3 (09:22→17:15)
[2022-03-19] MEDS: LACTULOSE 20G/30ML UDC NG SCH (09:22)
[2022-03-19] MEDS ORDERED: KCL 20MEQ/100ML PREMIX 100 ML IV NR (11:00)
[2022-03-19] MEDS: POTASSIUM CHLORIDE INJ 30 MEQ in DEXTROSE 5% WATER 1,000 ML IV SCH (11:13)
[2022-03-19] MEDS: ACETAMINOPHEN 650MG/20.3ML UDC NG PRN (17:13)
[2022-03-19] MEDS: ASCORBIC ACID 500 MG TABLET PO SCH (17:14)
[2022-03-19] MEDS ORDERED: RIFAXIMIN 550 MG TABLET PO SCH (21:00)
[2022-03-20] VITALS (26 sets, daily range): BP systolic 48–135; BP diastolic 35–85
[2022-03-20] MEDS: IPRATROPIUM/ALBUTEROL 0.5-3(2.5)MG/3ML NEB HHN SCH ×4 (01:19→20:20)
[2022-03-20] MEDS: POTASSIUM CHLORIDE INJ 30 MEQ in DEXTROSE 5% WATER 1,000 ML IV SCH ×2 (05:10→17:59)
[2022-03-20 06:02] LABS: CHLORIDE 113 mEq/L (98-107)
[2022-03-20 06:07] LABS: HEMATOCRIT. 29.4 % (42.0-52.0); HEMOGLOBIN. 8.8 g/dL (14.0-18.0); MEAN CORPUSCULAR HEMOGLOBIN 23.6 pg (28.0-32.0); MEAN CORPUSCULAR VOLUME 78.5 fL (80.0-94.0); MEAN PLATELET VOLUME 11.3 fl (7.4-10.4); PLATELET 147 x1000/uL (130-400); RED BLOOD CELL COUNT 3.75 mill/uL (4.7-6.1); RED CELL DISTRIBUTION WIDTH 17.2 % (11.6-14.6)
[2022-03-20] MEDS: FERROUS SULFATE 325MG TABLET PO SCH ×2 (06:14→10:38)
[2022-03-20 06:28] LABS: HDL CHOLESTEROL 38 mg/dL (40-59); LDL CHOLESTEROL 36 mg/dL (5-100); PHOSPHORUS 3.7 mg/dL (2.5-4.9)
[2022-03-20] MEDS: MIDODRINE HCL 5MG TABLET PO SCH ×3 (10:38→17:59)
[2022-03-20] MEDS: LACTULOSE 20G/30ML UDC NG SCH (10:38)
[2022-03-20] MEDS: ASCORBIC ACID 500 MG TABLET PO SCH ×2 (10:38→17:59)
[2022-03-20] MEDS: PANTOPRAZOLE SODIUM 40 MG/VIAL IV SCH (10:39)
[2022-03-20] MEDS: GUAIFENESIN 600MG ER TABLET PO SCH ×2 (10:42→21:00)
[2022-03-20 11:31] LABS: PLATELET ESTIMATE NORMAL
[2022-03-20] MEDS: ACETAMINOPHEN 650MG/20.3ML UDC NG PRN (15:18)
[2022-03-20] MEDS: LEVOFLOXACIN 500MG TABLET PO SCH (17:59)
[2022-03-20] MEDS ORDERED: MORPHINE SULFATE 2 MG/ML CPJ (NOT FOR IM USE) IV NR (19:00)
[2022-03-20] MEDS ORDERED: NALOXONE HCL 0.4MG/ML VIAL IV PRN (19:00)
[2022-03-20] MEDS ORDERED: HYDROCODONE/ACETAMINOPHEN 5/325MG TABLET PO PRN (19:00)
[2022-03-20] MEDS ORDERED: MAGNESIUM/ALUMINUM HYDROXIDE/SIMETHICONE 30ML UDC PO PRN (19:00)
[2022-03-20] MEDS: ONDANSETRON HCL 4MG/2ML INJ IV PRN (19:49)
[2022-03-20 20:14] LABS: BG BASE EXCESS -1.5 mmol/L (-2.0-2.0); BG DEOXYHEMOGLOBIN 14.8 % (0.0-5.0); BG FRACTION INSPIRED OXYGEN 36; BG OXYGEN SATURATION 85.1 % (92.0-98.5); BG OXYHEMOGLOBIN 84.2 % (94.0-97.0); BG PO2 54.9 mmHg (75.0-100.0); BG SAMPLE SITE RIGHT RADIAL; BG TOTAL HEMOGLOBIN 9.7 g/dL (12.0-18.0); BG VENT MODE NASAL CANNULA
[2022-03-20] MEDS ORDERED: NOREPINEPHRINE 8MG/250ML PMX 250 ML IV ONE (20:30)
[2022-03-20] MEDS ORDERED: PIPERACILLIN/TAZOBACTAM 3.375GM/50ML PREMIX IV ONE (20:45)
[2022-03-20] MEDS ORDERED: PROPOFOL 10MG/ML 100ML 100 ML IV PRN (22:00)
[2022-03-20] MEDS ORDERED: PHENYLEPHRINE 100 MG in DEXT 5% WATER 240 ML IV PRN (22:00)
[2022-03-20] MEDS ORDERED: PIPERACILLIN/TAZOBACTAM 3.375G in DEXT 5% WATER 50ML IV SCH (22:00)
[2022-03-20] MEDS ORDERED: SODIUM CHLORIDE 0.9% 500 ML IV NR (22:00)
[2022-03-20] MEDS ORDERED: VANCOMYCIN 1.25GM PMX (XELLIA) 250 ML IV NR (22:30)
[2022-03-20] MEDS ORDERED: NOREPINEPHRINE 32 MG in DEXT 5% WATER 218 ML IV PRN (22:30)
[2022-03-21] VITALS (20 sets, daily range): BP systolic 19–108; BP diastolic 13–54
[2022-03-21 00:27] LABS: BG BASE EXCESS -5.8 mmol/L (-2.0-2.0); BG CARBOXYHEMOGLOBIN 0.9 % (0.5-1.5); BG DEOXYHEMOGLOBIN 1.5 % (0.0-5.0); BG FRACTION INSPIRED OXYGEN 100; BG HCO3 ACT 19.6 mmol/L (22.0-26.0); BG METHEMOGLOBIN 0.1 % (0.0-1.5); BG OXYGEN SATURATION 98.5 % (92.0-98.5); BG OXYHEMOGLOBIN 97.5 % (94.0-97.0); BG PCO2 38.3 mmHg (35.0-45.0); BG PH 7.327 (7.350-7.450); BG SAMPLE SITE RIGHT BRACHIAL; BG TOTAL HEMOGLOBIN 11.8 g/dL (12.0-18.0); BG VENT MODE VENT - AC
[2022-03-21] MEDS: IPRATROPIUM/ALBUTEROL 0.5-3(2.5)MG/3ML NEB HHN SCH (01:30)
[2022-03-21 01:53] LABS: HEMOGLOBIN. 10.4 g/dL (14.0-18.0); MEAN CORPUSCULAR HEMOGLOBIN 23.1 pg (28.0-32.0); RED BLOOD CELL COUNT 4.49 mill/uL (4.7-6.1); RED CELL DISTRIBUTION WIDTH 17.5 % (11.6-14.6)
[2022-03-21 03:37] LABS: PHOSPHORUS 6.8 mg/dL (2.5-4.9)
[2022-03-21 06:04] LABS: MEAN PLATELET VOLUME 11.9 fl (7.4-10.4); PLATELET 186 x1000/uL (130-400)
[2022-03-21 07:48] LABS: NUCLEATED RED BLOOD CELLS 1 /100 WBC; PLATELET ESTIMATE NORMAL
[2022-03-21] MEDS ORDERED: VANCOMYCIN 750MG PREMIX 150 ML IV SCH (12:00)
== END 2022-03-21 02:09 | DRG 720 ==
LOC: ER 09:20 → 8WST 14:05 → ENRESERV 15:11 → 8WST 03-13 10:24 → MICUSO 03-13 17:50 → 3WST 03-19 12:10 → MICUSO 03-20 21:30
PROVIDERS: ADMIT Internal Medicine; ATTEND Internal Medicine
PROC: 4A00X4Z Measurement of Central Nervous Electrical Activity, External Approach (ICD-10-PCS; principal; 2022-03-14)
PROC: 5A1955Z Respiratory Ventilation, Greater than 96 Consecutive Hours (ICD-10-PCS; 2022-03-14)
PROC: 02HV33Z Insertion of Infusion Device into Superior Vena Cava, Percutaneous Approach (ICD-10-PCS; 2022-03-14)
PROC: B548ZZA Ultrasonography of Superior Vena Cava, Guidance (ICD-10-PCS; 2022-03-14)
PROC: 0BH17EZ Insertion of Endotracheal Airway into Trachea, Via Natural or Artificial Opening (ICD-10-PCS; 2022-03-14)
PROC: 5A1D70Z Performance of Urinary Filtration, Intermittent, Less than 6 Hours Per Day (ICD-10-PCS; 2022-03-14)
PROC: 5A1D70Z Performance of Urinary Filtration, Intermittent, Less than 6 Hours Per Day (ICD-10-PCS; 2022-03-15)
PROC: 0BH17EZ Insertion of Endotracheal Airway into Trachea, Via Natural or Artificial Opening (ICD-10-PCS; 2022-03-20)
PROC: 5A1935Z Respiratory Ventilation, Less than 24 Consecutive Hours (ICD-10-PCS; 2022-03-20)
DX: A41.59 Other Gram-negative sepsis (principal); J96.00 Acute respiratory failure, unspecified whether with hypoxia or hypercapnia; N17.0 Acute kidney failure with tubular necrosis; G93.6 Cerebral edema; G93.41 Metabolic encephalopathy; E43 Unspecified severe protein-calorie malnutrition; E72.4 Disorders of ornithine metabolism; J15.6 Pneumonia due to other Gram-negative bacteria; I50.23 Acute on chronic systolic (congestive) heart failure; R65.20 Severe sepsis without septic shock; E87.1 Hypo-osmolality and hyponatremia; S80.821A Blister (nonthermal), right lower leg, initial encounter; E66.9 Obesity, unspecified; D62 Acute posthemorrhagic anemia; D69.6 Thrombocytopenia, unspecified; E87.5 Hyperkalemia; F14.129 Cocaine abuse with intoxication, unspecified; F17.210 Nicotine dependence, cigarettes, uncomplicated; I42.9 Cardiomyopathy, unspecified; N18.30 Chronic kidney disease, stage 3 unspecified; I13.0 Hypertensive heart and chronic kidney disease with heart failure and stage 1 through stage 4 chronic kidney disease, or unspecified chronic kidney disease; Z20.822 Contact with and (suspected) exposure to COVID-19; D50.9 Iron deficiency anemia, unspecified; E87.0 Hyperosmolality and hypernatremia; E87.6 Hypokalemia; I27.29 Other secondary pulmonary hypertension; I73.9 Peripheral vascular disease, unspecified; J44.9 Chronic obstructive pulmonary disease, unspecified; E88.09 Other disorders of plasma-protein metabolism, not elsewhere classified; R91.8 Other nonspecific abnormal finding of lung field; J84.9 Interstitial pulmonary disease, unspecified; R74.01 Elevation of levels of liver transaminase levels; J44.0 Chronic obstructive pulmonary disease with (acute) lower respiratory infection; J98.11 Atelectasis; Z99.2 Dependence on renal dialysis; Z28.310 Unvaccinated for COVID-19; Z82.49 Family history of ischemic heart disease and other diseases of the circulatory system; Z86.73 Personal history of transient ischemic attack (TIA), and cerebral infarction without residual deficits; Z68.25 Body mass index [BMI] 25.0-25.9, adult; X58.XXXA Exposure to other specified factors, initial encounter; Y93.89 Activity, other specified; Y92.89 Other specified places as the place of occurrence of the external cause; Y99.8 Other external cause status; K92.2 Gastrointestinal hemorrhage, unspecified
CPT/HCPCS: 31500; 36415; 36556; 36600; 70551; 71045; 71250; 74176; 76700; 76770; 76937; 80048; 80053; 80061; 80076; 80305; 81003; 82140; 82248; 82270; 82375; 82607; 82728; 82746; 82805; 82962; 83540; 83550; 83605; 83735; 83880; 84100; 84145; 84484; 85014; 85018; 85025; 85044; 85362; 85384; 86705; 86709; 86803; 87070; 87077; 87186; 87340; 87426; 87804; 90686; 90732; 90935; 92610; 93005; 93306; 93923; 93970; 94002; 94003; 94640; 95816; 97162; 97166; 97530; 99291; A6261; C1752; C1893; C9113; J0456; J0696; J1644; J1815; J1940; J2185; J2250; J2270; J2310; J2370; J2405; J2543; J2704; J3370; J3480; J3490; J7050; J7060; J7070; P9047; A4315